=== PATIENT | male | born 1950 | race Caucasian/White ===

== ENCOUNTER 2022-01-14 18:24 | Emergency (ER) | payer MEDICARE ==
[2022-01-14] MEDS ORDERED: SODIUM CHLORIDE 0.9% 1,000 ML IV STA (18:43)
[2022-01-14] MEDS ORDERED: HYDROmorphone 1 MG/ML 1 ML SYRINGE IVP STA (18:50)
[2022-01-14] MEDS ORDERED: LIDOCAINE 2% INJ 20 MG/ML (20 ML MDV) SQ STA (19:09)
--- NOTE | 2022-01-14 19:33 | XR ---
EXAMINATION TYPE: XR hand limited LT DATE OF EXAM: 01/14/2022 COMPARISON: NONE HISTORY: Laceration TECHNIQUE: 3 views FINDINGS: There is oblique fracture of the middle phalanx of the index finger. There is comminuted fr acture of the head of the proximal phalanx of the middle finger. There is laceration deformities of t he soft tissues. Metacarpals are intact there is spurring at the IP joint of the thumb. IMPRESSION: Multiple fractures and laceration deformity. No foreign body.
--- NOTE | 2022-01-14 19:34 | ED ---
General Adult HPI - General Stated complaint: Finger laceration Time Seen by Provider: 01/14/22 18:29 Source: EMS Mode of arrival: EMS Limitations: no limitations - History of Present Illness Initial comments: Patient is a 71-year-old male with past medical history remarkable for hypertension, patient is a Religion, diabetes, CK D, hyperlipidemia who presents emergency Department complaining of partial amputations as well as open lacerations to his left hand. Patient was using a table saw and slipped, causing lacerations to his left first, second, third digits. Was seen at approximately 2 PM at [facility]. He is right-handed. He was diagnosed with open fractures of the first, second, third digits of left hand. Patient currently denies any change in presentation. He is complaining of extreme hand pain on the left hand. Does have intact distal sensation in the first, second, third digits. Exam at the other facility shows lacerations on the flexor surface of all 3 fingers. Was neurovascularly intact in all 3 fingers. Does have reduced range of motion secondary to trauma, however does have partial flexion of all 3 fingers. Patient was administered Ancef, given tetanus booster, and transferred to our facility for hand surgery evaluation. Hand surgery was not contacted prior to transfer. - Related Data Previous Rx's Medication Instructions Recorded Cephalexin [Keflex] 500 mg PO Q8HR 10 Days #30 cap 01/14/22 HYDROcodone/APAP 7.5-325MG [[place] 1 tab PO Q6HR PRN 3 Days #12 tab 01/14/22 7.5-325] Ondansetron Odt [Zofran Odt] 4 mg PO Q8HR PRN 2 Days #6 tab 01/14/22 methocarbamoL [Robaxin-750] 750 mg PO TID PRN 7 Days #21 tab 01/14/22 Allergies Allergy/AdvReac Type Severity Reaction Status Date / Time No Known Allergies Allergy Verified 01/14/22 19:02 Review of Systems ROS Statement: Those systems with pertinent positive or pertinent negative responses have been documented in the HPI. Review of Systems: CONST: Denies fever EYES: Denies blurry vision ENT: Denies nasal congestion C/V: Denies Chest pain RESP: Denies shortness of breath GI: Denies abdominal pain : Denies dysuria SKIN: Endorses hand laceration MSK: Denies joint pain. NEURO: Denies headache ROS Other: All systems not noted in ROS Statement are negative. Past Medical History Past Medical History: Diabetes Mellitus, Hypertension History of Any Multi-Drug Resistant Organisms: None Reported Past Surgical History: Appendectomy Past Psychological History: No Psychological Hx Reported Smoking Status: Never smoker Past Alcohol Use History: None Reported Past Drug Use History: None Reported General Exam - General Exam Comments Initial Comments: General: Appears in moderate distress secondary to hand pain. HEAD: Normal with no signs of head trauma. EYES: EOMI ENT: Hearing grossly intact RESPIRATORY:. No signs bilaterally C/V: Regular rate and rhythm. Peripheral pulses 2+ and intact throughout including the left radial and ulnar pulses. ABD: Abd is soft, nontender, nondistended EXT: Left hand shows no injury to the fourth or fifth digits. Patient does have significant lacerations located primarily over the palmar aspect of the left first, second, third digits. The patient's first digit has a laceration over the flexor surface over the PIP. Diminished flexor strength but it is still present. Patient has intact light touch sensation distal to the laceration and injury. Patient also has 1-2 second capillary refill and the first digit. Second digit has partial skin intact with partial bony amputation screening the DIP joint. Patient has intact distal sensation to light touch as well as c apillary refill between 1-2 seconds. Does appear to have good movement of that finger, however it is lacking secondary to the injury. The flexor strength is diminished secondary to the open fracture. Third digit also as partial skin intact with a bony amputation screening the PIP joint. Capillary refill is 1-2 seconds on this digit as well. Intact to light touch sensation distal to the injury. SKIN: Lacerations over the first set, second, third digits of the left hand. Open fractures. NEURO: Alert and oriented 4. Reduced strength of the injured fingers, however has distal sensation and is neurovascular intact distal to the injuries. Limitations: no limitations Course Vital Signs 01/14/22 18:48 Temperature 97.5 F L Pulse Rate 80 Respiratory 18 Rate Blood Pressure 172/87 O2 Sat by Pulse 98 Oximetry Medical Decision Making - Medical Decision Making Patient presented as a transfer. Based on his presentation and physical exam, he has open fractures of the first, second, third digits of his left hand as well as partial amputations appears of the second and third digits. Patient already received tetanus as well as Ancef at the outside hospital. I evaluated the patient's hand, obtain a repeat x-ray, and contacted Dr. Grove of hand [facility]. We discussed at length, and it was determined that because the patient is neurovascularly intact distal to the amputations and injuries, he is safe for outpatient evaluation of his injury. She recommended loose closure of the injuries, and then placing the patient in a intrinsic plus position splint. Patient will be discharged home on oral antibiotics. He'll be instructed to follow up outpatient with Dr. Grove on Sunday or Sunday of next week. I explained this to the patient as well as his and they were in agreement with this plan. Basic labs returned remarkable for CK D with no other findings. As stated above, patient already received kefzol at the outside hospital. Already received tetanus booster. Patient tolerated the suturing well. Patient was splinted as well. Please see the mid-level provider's procedure note. Patient will be given prescriptions for [place], Keflex, Zofran ODT. We'll also receive a Zofran starter pack. He will receive a Tylenol 3 starter pack. Patient was in agreement this plan. I answered all questions that he and his had. Patient will follow-up with Dr. Grove on Sunday. I will provide the patient with a prescription for [place], Robaxin, Zofran, Keflex. I instructed the patient to follow up with their PCP in the next 1-3 days. I provided contact information for follow up with Dr. Grove of hand surgery. I explained that the patient should return to the emergency department if they experience any worsening symptoms. Strict return precautions were discussed with the patient. The patient expressed understanding of these instructions. I answered all questions that the patient had. The patient was discharged home in fair condition with their prescriptions and follow up information. - Lab Data Result diagrams: 01/14/22 19:07 01/14/22 19:07 Lab Results 01/14/22 01/14/22 01/14/22 Range/Units 19:07 19:07 19:07 WBC 9.8 (3.8-10.6) k/uL RBC 3.85 L (4.30-5.90) m/uL Hgb 12.0 L (13.0-17.5) gm/dL Hct 36.3 L (39.0-53.0) % MCV 94.4 (80.0-100.0) fL MCH 31.3 (25.0-35.0) pg MCHC 33.1 (31.0-37.0) g/dL RDW 12.6 (11.5-15.5) % Plt Count 221 (150-450) k/uL MPV 7.9 Neutrophils % 87 % Lymphocytes % 9 % Monocytes % 3 % Eosinophils % 0 % Basophils % 0 % Neutrophils # 8.5 H (1.3-7.7) k/uL Lymphocytes # 0.9 L (1.0-4.8) k/uL Monocytes # 0.2 (0-1.0) k/uL Eosinophils # 0.0 (0-0.7) k/uL Basophils # 0.0 (0-0.2) k/uL PT 10.4 (9.0-12.0) sec INR 0.9 (<1.2) APTT 20.4 L (22.0-30.0) sec Sodium 139 (137-145) mmol/L Potassium 4.2 (3.5-5.1) mmol/L Chloride 103 (98-107) mmol/L Carbon Dioxide 22 (22-30) mmol/L Anion Gap 14 mmol/L BUN 37 H (9-20) mg/dL Creatinine 1.42 H (0.66-1.25) mg/dL Est GFR (CKD-EPI)AfAm 57 (>60 ml/min/1.73 sqM) Est GFR (CKD-EPI)NonAf 49 (>60 ml/min/1.73 sqM) Glucose 176 H (74-99) mg/dL Calcium 9.6 (8.4-10.2) mg/dL Disposition Clinical Impression: Finger laceration, Open fracture of finger of left hand Narrative: Partial finger amputations of left hand, digits 1-3 Disposition: HOME SELF-CARE Condition: Fair Instructions (If sedation given, give patient instructions): Laceration (ED), Hand Fracture (ED) Additional Instructions: Follow up with Dr. Grove on 01/16/22. Please call the office Sunday morning. Prescriptions: Cephalexin [Keflex] 500 mg PO Q8HR 10 Days #30 cap HYDROcodone/APAP 7.5-325MG [[place] 7.5-325] 1 tab PO Q6HR PRN 3 Days #12 tab PRN Reason: Pain methocarbamoL [Robaxin-750] 750 mg PO TID PRN 7 Days #21 tab PRN Reason: Pain Ondansetron Odt [Zofran Odt] 4 mg PO Q8HR PRN 2 Days #6 tab PRN Reason: Nausea Is patient prescribed a controlled substance at d/c from ED?: Yes When asked, does pt state using other controlled substances?: No If prescribed controlled substance>3 days was MAPS reviewed?: Prescribed <3 Days If opioid is for acute pain is fill amount 7 days or less?: Yes If Rx opioid, was Start Talking consent form obtained?: Yes Referrals: Genatasindy,Physician [Primary Care Provider] - 1-2 days Toshia Grove DO [Doctor of Osteopathic Medicine] - 1-2 days Time of Disposition: 21:38
[2022-01-14 19:38] LABS: Basophils % (A) 0 %; Eosinophils % (A) 0 %; HCT 36.3 % (39.0-53.0); Lymphocytes # (A) 0.9 k/uL (1.0-4.8); Lymphocytes % (A) 9 %; MCH 31.3 pg (25.0-35.0); MCHC 33.1 g/dL (31.0-37.0); MCV 94.4 fL (80.0-100.0); Mean Platelet Volume 7.9; Monocytes # (A) 0.2 k/uL (0-1.0); Monocytes % (A) 3 %; Neutrophils # (A) 8.5 k/uL (1.3-7.7); Neutrophils % (A) 87 %; Platelet Count 221 k/uL (150-450); RBC 3.85 m/uL (4.30-5.90); RDW 12.6 % (11.5-15.5); WBC 9.8 k/uL (3.8-10.6)
[2022-01-14 19:50] LABS: Calcium 9.6 mg/dL (8.4-10.2); Potassium 4.2 mmol/L (3.5-5.1)
[2022-01-14 20:01] LABS: INR 0.9 (<1.2); Partial Thromboplastin Time 20.4 sec (22.0-30.0); Prothrombin Time 10.4 sec (9.0-12.0)
[2022-01-14] MEDS ORDERED: MORPHINE SULFATE 4 MG/ML SYRINGE IVP STA (21:27)
[2022-01-14] MEDS ORDERED: ONDANSETRON 4 MG ODT STARTER PACK 2 TAB BTL PO STA (21:28)
[2022-01-14] MEDS ORDERED: ACET/COD 300 MG/30 MG STARTER PACK 6 TAB BTL PO STA (21:28)
[2022-01-14 22:57] VITALS: BP 177/90; PULSE 67; RESP 19; TEMP 97.6
== END 2022-01-14 22:57 | disposition home or self-care (01) ==
LOC: EC 18:24
DX: S62.601A Fracture of unspecified phalanx of left index finger, initial encounter for closed fracture (principal); S61.412A Laceration without foreign body of left hand, initial encounter; E11.9 Type 2 diabetes mellitus without complications; I10 Essential (primary) hypertension; W01.0XXA Fall on same level from slipping, tripping and stumbling without subsequent striking against object, initial encounter
CPT/HCPCS: 36415; 80048; 85025; 85610; 85730; 73120; 99283; 96374; 96375; 96361; J2001; J2270; J1170; S0119